=== PATIENT | male | born 1950 | race Two or more races ===

== ENCOUNTER → 2017-01-02 | Outpatient (CLI) | payer OTHER ==
--- NOTE | 2017-01-02 16:26 | Diagnostic Imaging Report ---
Indication: PAIN Technique: Sagittal T1 and T2 fast spin echo, sagittal STIR, axial T1 and T2 fast spin-echo images of the lumbar spine Comparison: None Findings: Bony alignment is normal. Vertebral body heights are preserved. Vertebral marrow signal is normal. The conus medullaris terminates at the T12-L1 level. At T12-L1, there is minimal degenerative disc narrowing. There is anterior disc bulge and osteophyte complex, but no significant posterior disc bulge. No spinal stenosis. No neural foraminal stenosis. At L1-2, there is minimal degenerative disc narrowing. There is anterior disc bulge and osteophytes, but no significant posterior disc bulge, spinal stenosis, or neural foraminal stenosis. At L2-3, there is minimal circumferential annular bulge. This does not significantly narrow the spinal canal, may slightly compromise the bilateral neural foramina. The disc space is preserved At L3-4, the disc space is preserved. There is mild circumferential annular bulge, which does not significantly compromise the spinal canal. This may slightly compromise the bilateral neural foramina and minimally the bilateral lateral recesses. At L4-5, the disc space is preserved. There is mild circumferential annular bulge. This does not significantly compromise the spinal canal. There is mild narrowing of the bilateral neural foramina as a result. At L5-S1, there is minimal circumferential annular bulge. This does not significantly narrow the spinal canal or neural foramina. The included extraspinal soft tissues are remarkable for the presence of bilateral renal cysts Impression: No acute process or evidence of significant neural impingement Mild degenerative changes, as detailed on a level by level basis above.
== END | disposition home or self-care (01) ==
LOC: MRI 15:20
DX: M54.16 Radiculopathy, lumbar region (principal)
CPT/HCPCS: 72148